=== PATIENT | male | born 1960 | race Caucasian/White ===

== ENCOUNTER 2017-12-06 12:17 | Inpatient (IN) | payer MEDICAID, OTHER ==
[~2017-12-06] VITALS: Ht 185.4 cm; Wt 52.6 kg
[2017-12-06 12:52] LABS: Basophils # (auto) 0 uL; Basophils % (auto) 0.5 % (0.0-2.0); Eosinophils # (auto) 0.2 uL; Hematocrit 43.1 % (41.0-53.0); Hemoglobin 14.5 g/dL (13.5-17.5); Lymphocytes # (auto) 1.8 uL; Lymphocytes % (auto) 28.2 % (10.0-50.0); Mean Corpuscular Hemoglobin 30.4 pg (28.0-32.0); Mean Corpuscular Hgb Conc. 33.5 g/dL (32.0-36.0); Mean Corpuscular Volume 90.5 fL (80.0-100.0); Monocytes # (auto) 0.5 uL; Monocytes % (auto) 7.5 % (0.0-12.0); Neutrophils # (auto) 3.9 uL; Neutrophils % (auto) 60.8 % (37.0-80.0); Platelet Count (auto) 325 10^3/uL (140-450); Red Blood Cells 4.76 10^6/uL (4.5-5.90); Red Cell Distribution Width 13.4 % (11.8-14.3); White Blood Cell 6.3 10^3/uL (4.4-10.8)
[2017-12-06 13:12] LABS: INR 0.95 (0.9-1.15); Partial Thromboplastin Time 26.2 sec (22.64-33.71); Prothrombin Time 10.4 sec (9.37-12.3)
[2017-12-06 13:14] LABS: Anion Gap 3 (5-15); Blood Urea Nitrogen 9 mg/dL (7-18); Carbon Dioxide 27 mmol/L (21-32); Chloride 107 mmol/L (98-107); Glucose 134 mg/dL (74-106); Potassium 4.4 mmol/L (3.5-5.1); Sodium 137 mmol/L (136-145)
[2017-12-06 13:15] LABS: Alanine Aminotransferase 27 U/L (16-61); Albumin 3.9 g/dL (3.4-5.0); Alkaline Phosphatase 114 U/L (45-117); Aspartate Aminotransferase 17 U/L (15-37); BUN/Creatinine Ratio 9.2; Bilirubin, Total 0.4 mg/dL (0.2-1.0); Calcium 8.4 mg/dL (8.5-10.1); GFR African American 102 mL/min; GFR Non-African American 84 mL/min; Total Protein 7.4 g/dL (6.4-8.2)
[2017-12-06] MEDS ORDERED: MORPHINE SULFATE 4 MG/ML SYR/VIAL IV ONE (14:00)
[2017-12-06] MEDS ORDERED: ONDANSETRON HCL 4 MG/2 ML VIAL IV ONE (14:00)
[2017-12-06 15:38] LABS: Urine Bacteria FEW /hpf (None Seen); Urine Blood Negative /uL (Negative); Urine Specific Gravity 1.005 (1.001-1.035); Urine WBC <1 /hpf (0 - 3)
[2017-12-06] MEDS ORDERED: TEMAZEPAM 15 MG CAP PO PRN (15:45)
[2017-12-06] MEDS ORDERED: ACETAMINOPHEN 500 MG TAB PO PRN (15:45)
[2017-12-06] MEDS ORDERED: NITROGLYCERIN 0.4 MG SL TAB SL PRN (15:45)
[2017-12-06] MEDS ORDERED: LORazepam 0.5 MG TAB PO PRN (15:45)
[2017-12-06] MEDS ORDERED: MORPHINE SULFATE 4 MG/ML SYR/VIAL IV PRN ×2 (15:45)
[2017-12-06] MEDS ORDERED: HYDROcodone-ACET 5/325MG TAB PO PRN (15:45)
[2017-12-06] MEDS ORDERED: PROMETHAZINE HCL 25 MG/ML 1ML IV PRN (15:45)
[2017-12-06] MEDS ORDERED: LACTULOSE 20Gm/30ML SOLN PO PRN (15:45)
[2017-12-06 15:59] LABS: Alcohol, Urine < 3.0 mg/dL (0-5); Amphetamine Screen, Urine POSITIVE (NEGATIVE); Barbiturate Scree,Urine NEGATIVE (NEGATIVE); Benzodiazephine Screen, Urine NEGATIVE (NEGATIVE); Cannabinoid Screen, Urine NEGATIVE (NEGATIVE); Cocaine Screen, Urine NEGATIVE (NEGATIVE); Opiate Scree,Urine NEGATIVE (NEGATIVE); Phencyclidine Screen, Urine NEGATIVE (NEGATIVE)
[2017-12-06 17:35] VITALS: BP 121/91
[2017-12-06] MEDS ORDERED: HYDR-4072 PO (19:06)
[2017-12-06 20:00] VITALS: BP 123/70
[2017-12-06 22:00] VITALS: BP 123/70
[2017-12-06] MEDS ORDERED: ATORVASTATIN 20 MG TAB PO SCH (22:00)
[2017-12-06] MEDS: METOPROLOL TARTRATE 25 MG TAB PO SCH (22:13)
[2017-12-07 05:00] VITALS: BP 115/72
[2017-12-07 07:43] LABS: Cholesterol 130 mg/dL (< 200); HDL Cholesterol 38 mg/dL (40-59); LDL Cholesterol 84 mg/dL (< 100); Triglycerides 157 mg/dL (< 150)
[2017-12-07 09:16] VITALS: BP 129/67
[2017-12-07] MEDS: ASPirin 81 mg TAB PO SCH (09:33)
[2017-12-07] MEDS: METOPROLOL TARTRATE 25 MG TAB PO SCH ×2 (09:33→21:14)
[2017-12-07] MEDS: NITROGLYCERIN 0.2MG/HR TOPICAL PATCH TD SCH (09:34)
[2017-12-07] MEDS ORDERED: ENOXAPARIN SOD 40 MG/0.4 ML SYRINGE SC SCH (10:00)
[2017-12-07 13:11] VITALS: BP 108/68
[2017-12-07 17:17] VITALS: BP 126/77
[2017-12-07] MEDS ORDERED: LORazepam 2MG/ML-1ML VIAL IV PRN (19:00)
[2017-12-07 20:00] VITALS: BP 129/67
[2017-12-07] MEDS: ATORVASTATIN 20 MG TAB PO SCH (21:13)
[2017-12-07] MEDS: HYDROcodone-ACET 10/325MG TAB PO PRN (21:14)
[2017-12-07 23:11] VITALS: BP 115/64
[2017-12-08 05:29] VITALS: BP 112/68
[2017-12-08 08:58] VITALS: BP 138/85
[2017-12-08] MEDS: ASPirin 81 mg TAB PO SCH (09:35)
[2017-12-08] MEDS: METOPROLOL TARTRATE 25 MG TAB PO SCH ×2 (09:36→21:47)
[2017-12-08] MEDS: NITROGLYCERIN 0.2MG/HR TOPICAL PATCH TD SCH (09:36)
[2017-12-08 13:00] VITALS: BP 114/73
[2017-12-08 17:29] VITALS: BP 137/77
[2017-12-08] MEDS: ATORVASTATIN 20 MG TAB PO SCH (21:47)
[2017-12-08] MEDS: HYDROcodone-ACET 10/325MG TAB PO PRN (21:48)
[2017-12-08 22:00] VITALS: BP 138/72
[2017-12-09 05:00] VITALS: BP 136/77
[2017-12-09] MEDS ORDERED: ADENOSINE 79 MG in GIVE UN-DILUTED 0 ML IV ONE (08:30)
[2017-12-09 08:53] VITALS: BP 128/88
[2017-12-09 09:25] LABS: Folate (Folic Acid) 13.12 ng/mL (5.38-24)
[2017-12-09] MEDS: ASPirin 81 mg TAB PO SCH (10:00)
[2017-12-09] MEDS: METOPROLOL TARTRATE 25 MG TAB PO SCH ×2 (10:00→21:37)
[2017-12-09] MEDS: NITROGLYCERIN 0.2MG/HR TOPICAL PATCH TD SCH (10:00)
[2017-12-09 13:00] VITALS: BP 99/62
[2017-12-09 16:43] VITALS: BP 107/60
[2017-12-09] MEDS: ATORVASTATIN 20 MG TAB PO SCH (21:37)
[2017-12-09] MEDS: HYDROcodone-ACET 10/325MG TAB PO PRN (21:41)
[2017-12-09 22:00] VITALS: BP 141/82
[2017-12-10 05:00] VITALS: BP 127/74
[2017-12-10 06:43] LABS: BUN/Creatinine Ratio 14.4; Calcium 8.7 mg/dL (8.5-10.1); Potassium 4.4 mmol/L (3.5-5.1)
[2017-12-10 06:44] LABS: Basophils # (auto) 0 uL; Basophils % (auto) 0.5 % (0.0-2.0); Eosinophils # (auto) 0.3 uL; Eosinophils % (auto) 4.2 % (0.0-7.0); Hematocrit 45.6 % (41.0-53.0); Hemoglobin 15.6 g/dL (13.5-17.5); Lymphocytes # (auto) 2.4 uL; Lymphocytes % (auto) 31.7 % (10.0-50.0); Mean Corpuscular Hgb Conc. 34.2 g/dL (32.0-36.0); Mean Corpuscular Volume 90.8 fL (80.0-100.0); Monocytes # (auto) 0.7 uL; Monocytes % (auto) 9.3 % (0.0-12.0); Neutrophils # (auto) 4.1 uL; Neutrophils % (auto) 54.3 % (37.0-80.0); Nucleated Red Blood Cells % 0.2 %; Platelet Count (auto) 307 10^3/uL (140-450); Red Blood Cells 5.02 10^6/uL (4.5-5.90); Red Cell Distribution Width 13.6 % (11.8-14.3); White Blood Cell 7.5 10^3/uL (4.4-10.8)
[2017-12-10 08:00] VITALS: BP 106/69
[2017-12-10 09:42] VITALS: BP 106/69
[2017-12-10] MEDS: ASPirin 81 mg TAB PO SCH (09:53)
[2017-12-10] MEDS: NITROGLYCERIN 0.2MG/HR TOPICAL PATCH TD SCH (09:57)
[2017-12-10] MEDS: METOPROLOL TARTRATE 25 MG TAB PO SCH (09:57)
[2017-12-10 12:08] VITALS: BP 106/69
== END 2017-12-10 12:20 | disposition home or self-care (01) | DRG 47 ==
LOC: EDUNIT# 12:17 → EDBD 12:17 → ER 12:17 → TELE 12:18 → TELE-CENTR 17:38
PROVIDERS: ADMIT Internal Medicine; ATTEND Internal Medicine
DX: G45.9 Transient cerebral ischemic attack, unspecified (principal); I10 Essential (primary) hypertension; R07.9 Chest pain, unspecified; E78.5 Hyperlipidemia, unspecified; F40.240 Claustrophobia; G89.29 Other chronic pain; M54.16 Radiculopathy, lumbar region; I25.119 Atherosclerotic heart disease of native coronary artery with unspecified angina pectoris; Z79.82 Long term (current) use of aspirin; Z79.899 Other long term (current) drug therapy; Z80.0 Family history of malignant neoplasm of digestive organs; Z82.49 Family history of ischemic heart disease and other diseases of the circulatory system; Z86.73 Personal history of transient ischemic attack (TIA), and cerebral infarction without residual deficits; Z87.891 Personal history of nicotine dependence; Z91.041 Radiographic dye allergy status
CPT/HCPCS: 36415; 70450; 71046; 78452; 80048; 80053; 80061; 80307; 81001; 82550; 82607; 82746; 83880; 84443; 84484; 85025; 85379; 85610; 85652; 85730; 86141; 87081; 93005; 93017; 93306; 93886; 94761; 96374; 96375; J0153; J2405

== ENCOUNTER 2023-10-23 14:29 | Emergency (ER) | payer MEDICAID ==
[~2023-10-23] VITALS: Ht 188 cm; Wt 95.3 kg
[~2023-10-23 14:29] MED LIST: HYDR-4072 PO
[2023-10-23 17:06] VITALS: BP 137/88; PULSE 91; RESP 18; TEMP 96.8; O2SAT 96
[2023-10-23] MEDS ORDERED: LACTULOSE 20Gm/30ML SOLN PO ONE (17:30)
[2023-10-23] MEDS ORDERED: FLEET ENEMA(ADULT) 135 ML PR ONE (17:30)
[2023-10-23] MEDS ORDERED: SODIENE35 RE (19:13)
[2023-10-23] MEDS ORDERED: POLY335015 PO (19:13)
== END 2023-10-23 19:16 | disposition home or self-care (01) ==
LOC: ER 14:29
DX: K59.00 Constipation, unspecified (principal); E11.9 Type 2 diabetes mellitus without complications; Z91.041 Radiographic dye allergy status
CPT/HCPCS: 74018